=== PATIENT | male | born 1955 | race Caucasian/White ===

== ENCOUNTER → 2025-05-07 12:26 | Outpatient (CLI) | payer MEDICARE, SELFPAY ==
--- NOTE | 2025-05-08 17:10 | DI.NM.S_ITS ---
DATE OF SERVICE: 05/07/2025 EXERCISE PERFUSION STUDY INDICATIONS: Paroxysmal AFib, underlying right bundle branch block, hypertension. RADIOPHARMACEUTICAL: 26 millicurie technetium-99m Myoview IV was injected at stress and 25.6 millicurie technetium-99m Myoview IV was injected at rest. CARDIAC STRESS: The patient underwent exercise perfusion study under the supervision of an attending staff. He walked on Parveen protocol for 6 minutes and 15 seconds, achieved maximum heart rate of 133, which was 89% of target heart rate. Resting blood pressure 140/86 and peak blood pressure 174/80. Baseline rhythm was sinus with right bundle branch block. During stress no significant ischemic changes seen. Single pair PVCs. No complex arrhythmias. Nonspecific ST-T changes. The patient did not have any chest pain. Had some shortness of breath. Normal recovery. RAW DATA: There is increased subdiaphragmatic activity. GATED STUDY: Resting LV ejection fraction 70% and stress LV ejection fraction 72% without any obvious wall motion abnormalities. Resting end- diastolic volume 100 mL. TID ratio 1.07, which is within normal limits. MYOCARDIAL PERFUSION SCAN: Stress supine, resting supine images revealed small size, mildly decreased perfusion of basal to mid inferior wall which got completely resolved during stress prone images suggestive of diaphragmatic tissue attenuation artifact. Summed stress and summed rest score zero with summed difference score zero. CONCLUSION: I will call this study a normal myocardial perfusion study with evidence of diaphragmatic tissue attenuation artifact which got resolved during stress prone images. Summed rest and summed stress score zero. Diminished exercise tolerance. Normal hemodynamic response. No convincing ischemic EKG changes. Single pair PVCs. No other complex arrhythmias. No chest pain. Preserved LV function. Overall, low-risk exercise perfusion study. Louis Bowie - [employer]/fn/UM NURSE doc#: [id number]/job#: [id number] dd: 05/08/2025 16:59:00 dt: 05/08/2025 17:04:00 DICTATING MD/COPIES TO: Onelia Garduno MD COPIES MNE: LEANDRA;
== END ==
PROVIDERS: Referring Provider Internal Medicine Cardiovascular Disease; Visit Provider Internal Medicine Cardiovascular Disease
DX: I48.0 Paroxysmal atrial fibrillation (principal); I45.10 Unspecified right bundle-branch block
CPT/HCPCS: 78452; 93017; A9502